=== PATIENT | female | born 1965 ===

== ENCOUNTER 2016-09-19 11:11 | Emergency (ER) | payer OTHER ==
[2016-09-19] MEDS ORDERED: Sodium Chloride 0.9% 1,000 ML IV ONE (12:02)
[2016-09-19 12:24] LABS: SQUAMOUS EPITHIAL 7 /hpf (0-5); URINE BILIRUBIN NEGATIVE (NEGATIVE); URINE BLOOD 3+ (NEGATIVE); URINE CLARITY Hazy (Clear); URINE COLOR Red (YELLOW); URINE GLUCOSE (UA) NORMAL (Normal); URINE LEUKOCYTE ESTERASE TRACE Leu/uL (Negative); URINE NITRATE NEGATIVE (NEGATIVE); URINE PROTEIN 2+ mg/dL (NEGATIVE); URINE UROBILINOGEN NORMAL mg/dL (0.2-1.0)
[2016-09-19 12:25] LABS: HCG,QUALITATIVE URINE NEGATIVE (NEGATIVE)
[2016-09-19] MEDS ORDERED: Sodium Chloride 0.9% 1,000 ML ONE (13:11)
--- NOTE | 2016-09-19 13:14 | C.PDOC ---
History Of Present Illness 51-year-old female, presents to the emergency department with complaints of suprapubic abdominal cramping x3 days. Patients LMP on 03/17/16. States she has a Hx of uterine fibroids. Patients last ultrasound done eight months ago. Patient has not seen OBGYN for symptoms. Denies vomiting, diarrhea, dysuria, hematuria, vomiting or diarrhea. No other complaints at this time. Time Seen by Provider: 09/19/16 11:29 Chief Complaint (Nursing): Abdominal Pain History Per: Patient History/Exam Limitations: no limitations Onset/Duration Of Symptoms: Days Severity: Moderate Past Medical History Reviewed: Historical Data, Nursing Documentation, Vital Signs Vital Signs: Last Vital Signs Temp 98.2 F 09/19/16 11:16 Pulse 104 H 09/19/16 11:16 Resp 18 09/19/16 11:16 BP 108/64 09/19/16 11:16 Pulse Ox 98 09/19/16 13:16 Family History: States: No Known Family Hx - Social History Hx Alcohol Use: No Hx Substance Use: No - Immunization History Hx Tetanus Toxoid Vaccination: No Hx Influenza Vaccination: No Hx Pneumococcal Vaccination: No Review Of Systems Except As Marked, All Systems Reviewed And Found Negative. Constitutional: Negative for: Fever Cardiovascular: Negative for: Chest Pain Respiratory: Negative for: Shortness of Breath Gastrointestinal: Positive for: Abdominal Pain (suprapubic cramping) Genitourinary: Positive for: Vaginal Bleeding. Negative for: Vaginal Discharge Musculoskeletal: Negative for: Back Pain Physical Exam - Physical Exam Appears: Non-toxic, No Acute Distress Skin: Warm, Dry, No Rash Head: Atraumatic, Normacephalic Eye(s): bilateral: Normal Inspection Nose: Normal Oral Mucosa: Moist Lips: Normal Appearing Neck: Normal ROM Cardiovascular: Rhythm Regular, No Murmur Respiratory: Normal Breath Sounds, No Accessory Muscle Use Gastrointestinal/Abdominal: Soft, Tenderness (Mild suprapubic tenderness.), No Guarding, No Rebound Extremity: Normal ROM Neurological/Psych: Oriented x3, Normal Speech ED Course And Treatment - Laboratory Results Result Diagrams: 09/19/16 13:43 09/19/16 13:43 O2 Sat by Pulse Oximetry: 98 Disposition Counseled Patient/Family Regarding: Studies Performed, Diagnosis, Need For Followup, Rx Given - Disposition Referrals: at [facility] [Outside] Disposition: HOME/ ROUTINE Disposition Time: 14:35 Condition: STABLE Additional Instructions: SEGUIMIENTO CON QUIROZ GINECLOGO DENTRO DE 1 SEMANA USE MEDICAMENTOS PARA EL DOLOR DUARTE SEA NECESARIO DEVUELVA A LA RAFAEL DE EMERGENCIA SI LOS SNTOMAS EMPEORARAN Instructions: Uterine Fibroids (ED), First Trimester Vaginal Bleed (ED) Print Language: SERBIAN - Clinical Impression Clinical Impression: Vaginal bleeding, Uterine fibroid - Scribe Statement The provider has reviewed the documentation as recorded by the Scribe (Loida Lyle) All medical record entries made by the Scribe were at my direction and personally dictated by me. I have reviewed the chart and agree that the record accurately reflects my personal performance of the history, physical exam, medical decision making, and the department course for this patient. I have also personally directed, reviewed, and agree with the discharge instructions and disposition.
[2016-09-19 13:54] LABS: BASO % 0.5 % (0.0-2.0); EOS # 0.1 K/uL (0.0-0.7); EOS % 2.4 % (0.0-4.0); LYMPH # 1.4 K/uL (1.0-4.3); LYMPH % 24.4 % (20.0-40.0); MEAN CORPUSCULAR HEMOGLOBIN 27.8 pg (27.0-31.0); MEAN PLATELET VOLUME 10.1 fL (7.2-11.7); MONO # 0.6 K/uL (0.0-0.8); MONO % 9.6 % (0.0-10.0); NEUT # 3.7 K/uL (1.8-7.0); NEUT % 63.1 % (50.0-75.0); RBC 3.94 Mil/uL (3.80-5.20); RED CELL DISTRIBUTION WIDTH 16.5 % (11.5-14.5); WHITE BLOOD COUNT 5.9 K/uL (4.8-10.8)
[2016-09-19 13:55] LABS: MEAN CELL VOLUME 84.3 fL (81.0-99.0)
[2016-09-19 14:01] LABS: ALBUMIN 3.3 g/dL (3.5-5.0)
[2016-09-19 14:04] LABS: ALB/GLOB RATIO 1.1 (1.0-2.1); ALT/SGPT 28 U/L (9-52); AST/SGOT 24 U/L (14-36); BLOOD UREA NITROGEN 14 mg/dL (7-17); GFR AFRICAN-AMERICAN > 60; GFR NON-AFRICAN AMERICAN > 60
[2016-09-19 14:05] LABS: CALCIUM 8.3 mg/dl (8.6-10.4)
[2016-09-19 14:13] LABS: PROTHROMBIN TIME 11.2 SECONDS (9.7-12.2)
[2016-09-19 14:51] VITALS: BP 108/65; PULSE 80; RESP 20; TEMP 98.7; O2SAT 99
== END 2016-09-19 15:13 | disposition home or self-care (01) ==
LOC: C.ER 11:11
DX: D25.9 Leiomyoma of uterus, unspecified (principal); N93.9 Abnormal uterine and vaginal bleeding, unspecified
CPT/HCPCS: 80053; 81001; 84703; 85025; 85610; 85730; 86850; 86900; 96360; 99285; J7040